=== PATIENT | female | born 1930 | race Caucasian/White ===

== ENCOUNTER → 2020-07-26 | Outpatient (CLI) | payer MEDICARE, OTHER ==
[~2020-07-26] MED LIST: DOC-Q-LACE100 MG PO
== END ==
LOC: RAD 13:08
DX: M19.90 Unspecified osteoarthritis, unspecified site (principal); M47.816 Spondylosis without myelopathy or radiculopathy, lumbar region; M16.0 Bilateral primary osteoarthritis of hip
CPT/HCPCS: 72100; 73522